=== PATIENT | female | born 2000 | race Caucasian/White ===

== ENCOUNTER 2023-11-24 09:20 | Day surgery (SDC) | payer BC ==
[~2023-11-24] VITALS: Ht 160 cm; Wt 79.4 kg
[~2023-11-24 09:20] MED LIST: LORY1TAB2 PO; NS 1,000 ML IV ONE; SYNT125T PO; TRAN650T PO
[2023-11-24] MEDS ORDERED: propofoL 200 MG/20 ML VIAL As Ordered ONE (11:10)
[2023-11-24] MEDS ORDERED: LIDOCAINE 2% MDV 20ML VIAL As Ordered ONE (11:10)
[2023-11-24 11:40] VITALS: BP 124/75; O2SAT 100
== END 2023-11-24 11:56 | disposition home or self-care (01) ==
LOC: M OPP 09:20
PROVIDERS: ATTEND Internal Medicine Gastroenterology
DX: K29.50 Unspecified chronic gastritis without bleeding (principal); R10.13 Epigastric pain; R76.8 Other specified abnormal immunological findings in serum; K31.82 Dieulafoy lesion (hemorrhagic) of stomach and duodenum